=== PATIENT | male | born 2000 | race Caucasian/White ===

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

== ENCOUNTER 2020-07-28 09:59 | Emergency (ER) | payer MEDICAID ==
--- NOTE | 2020-07-28 10:50 | EDM.PDOC ---
ED HPI GENERAL MEDICAL PROBLEM - General Chief Complaint: Abdominal Pain Stated Complaint: L SIDED ABD PAIN Time Seen by Provider: 07/28/20 10:35 Source of Information: Reports: Patient, Old Records, RN History Limitations: Reports: No Limitations - History of Present Illness INITIAL COMMENTS - FREE TEXT/NARRATIVE: 19 yo male presents with a couple day hx of waxing and waning L sided abdominal pain. Sx's are a bit worse with deep breathing. No fever, constipation, diarrhea, nausea or hematuria. Onset: Gradual Onset Date: 07/26/20 Duration: Day(s):, Waxing/Waning Location: Reports: Abdomen Quality: Reports: Ache Severity: Moderate (varies over time) Improves with: Reports: None Worsens with: Reports: Other (unknown) Context: Reports: Other (See HPI) Associated Symptoms: Denies: Cough, Diaphoresis, Fever/Chills, Nausea/Vomiting, Rash Treatments [employer]: Reports: Other (see below) (none) Left Upper Abdomen Pain Score (Numeric/FACES): 4 - Related Data Allergies Allergy/AdvReac Type Severity Reaction Status Date / Time No Known Allergies Allergy Verified 07/28/20 10:23 Home Meds: Home Meds Minocycline [Minocin] 100 mg PO BID PRN 08/21/16 [History] Ascorbic Acid/Elderberry Fruit [Elderberry-Vit C 50-100 mg Chw] 1 tab PO DAILY 07/28/20 [History] Multivitamin [Multi-Vitamin Daily] 1 tab PO DAILY 07/28/20 [History] North Powder-3/DHA/Epa/Fish Oil [Fish Oil 1,000 mg Softgel] 1 tab PO DAILY 07/28/20 [History] Past Medical History HEENT History: Reports: Impaired Vision Musculoskeletal History: Reports: Fracture Other Musculoskeletal History: r ankle - Infectious Disease History Infectious Disease History: Reports: Chicken Pox - Past Surgical History HEENT Surgical History: Reports: Myringotomy w Tube(s), Tonsillectomy, Other (See Below) Other HEENT Surgeries/Procedures: jaw surgery Musculoskeletal Surgical History: Reports: Other (See Below) Other Musculoskeletal Surgeries/Procedures:: wrist right Social & Family History - Tobacco Use Tobacco Use Status *Q: Never Tobacco User Second Hand Smoke Exposure: No - Caffeine Use Caffeine Use: Reports: Energy Drinks, Soda - Recreational Drug Use Recreational Drug Use: No ED ROS GENERAL - Review of Systems Review Of Systems: See Below Constitutional: Reports: No Symptoms HEENT: Reports: No Symptoms Respiratory: Reports: No Symptoms Cardiovascular: Reports: No Symptoms GI/Abdominal: Reports: Abdominal Pain. Denies: Black Stool, Bloody Stool, Constipation, Diarrhea, Distension, Hematemesis, Hematochezia, Melena, Nausea, Vomiting : Reports: No Symptoms. Denies: Hematuria Musculoskeletal: Reports: No Symptoms Skin: Reports: No Symptoms ED EXAM, GI/ABD - Physical Exam Exam: See Below Exam Limited By: No Limitations General Appearance: Alert, WD/WN, No Apparent Distress, Obese Eyes: Bilateral: Normal Appearance Ears: Normal External Exam, Normal Canal, Hearing Grossly Normal Nose: Normal Inspection, No Blood Throat/Mouth: Normal Inspection, Normal Lips, Normal Oropharynx, Normal Voice, No Airway Compromise Head: Atraumatic, Normocephalic Neck: Normal Inspection Respiratory/Chest: No Respiratory Distress, Lungs Clear, Normal Breath Sounds, No Accessory Muscle Use Cardiovascular: Regular Rate, Rhythm, No Edema GI/Abdominal Exam: Normal Bowel Sounds, Soft, No Distention, Tender (L mid abdomen). No: Distended, Guarding, Rigid, Rebound Back Exam: Normal Inspection. No: CVA Tenderness (R), CVA Tenderness (L) Extremities: Normal Inspection, Normal Range of Motion, Non-Tender, No Pedal Edema Neurological: Alert, Oriented, CN II-XII Intact, Normal Cognition Psychiatric: Normal Affect, Normal Mood Skin Exam: Warm, Dry, Intact, Normal Color, No Rash Course - Vital Signs Last Recorded V/S: Last Vital Signs Temp 36.3 C 07/28/20 10:34 Pulse 58 L 07/28/20 16:18 Resp 16 07/28/20 10:34 BP 111/47 L 07/28/20 16:18 Pulse Ox 99 07/28/20 16:18 - Orders/Labs/Meds Orders: Active Orders 24 hr Category Date Time Status Abdomen 1V Flat [CR] Stat Exams 07/28/20 10:48 Taken Iopamidol [Isovue-300 (61%)] Med 07/28/20 14:30 Active 100 ml IV . DIRECTED Sodium Chloride 0.9% [Normal Saline] 100 ml Med 07/28/20 14:30 Active IV ASDIRECTED Sodium Chloride 0.9% [Saline Flush] Med 07/28/20 14:13 Active 10 ml FLUSH ASDIRECTED PRN Saline Lock Insert [OM.PC] Routine Oth 07/28/20 14:13 Ordered Medication Orders Sodium Chloride (Normal Saline) 100 mls @ 3 mls/sec IV ASDIRECTED MATIAS Last Admin: 07/28/20 15:48 Dose: 3 mls/sec Documented by: CATIA Iopamidol (Isovue-300 (61%)) 100 ml IV . DIRECTED MATIAS Last Admin: 07/28/20 15:48 Dose: 100 ml Documented by: CATIA Sodium Chloride (Saline Flush) 10 ml FLUSH ASDIRECTED PRN PRN Reason: Keep Vein Open Labs: Laboratory Tests 07/28/20 07/28/20 07/28/20 Range/Units 10:45 11:00 11:00 WBC 8.6 (4.5-11.0) K/uL RBC 5.73 (4.30-5.90) M/uL Hgb 15.3 H (12.0-15.0) g/dL Hct 45.5 (40.0-54.0) % MCV 79 L (80-98) fL MCH 27 (27-31) pg MCHC 34 (32-36) % Plt Count 225 (150-400) K/uL Sodium 141 (140-148) mmol/L Potassium 4.2 (3.6-5.2) mmol/L Chloride 104 (100-108) mmol/L Carbon Dioxide 27 (21-32) mmol/L Anion Gap 10.1 (5.0-14.0) mmol/L BUN 13 (7-18) mg/dL Creatinine 0.9 (0.8-1.3) mg/dL Est Cr Clr Drug Dosing 157.79 mL/min Estimated GFR (MDRD) > 60 (>60) Glucose 95 (74-106) mg/dL Calcium 9.8 (8.5-10.1) mg/dL C-Reactive Protein 1.47 H (0.0-0.3) mg/dL Urine Color (YELLOW) Urine Appearance (CLEAR) Urine pH (5.0-8.0) Ur Specific [place] (1.008-1.030) Urine Protein (NEGATIVE) mg/dL Urine Glucose (UA) (NEGATIVE) mg/dL Urine Ketones (NEGATIVE) mg/dL Urine Occult Blood (NEGATIVE) Urine Nitrite (NEGATIVE) Urine Bilirubin (NEGATIVE) Urine Urobilinogen (0.2-1.0) EU/dL Ur Leukocyte Esterase (NEGATIVE) Urine RBC (0-5) Urine WBC (0-5) Ur Epithelial Cells Amorphous Sediment Urine Bacteria Urine Mucus 07/28/20 Range/Units 13:42 WBC (4.5-11.0) K/uL RBC (4.30-5.90) M/uL Hgb (12.0-15.0) g/dL Hct (40.0-54.0) % MCV (80-98) fL MCH (27-31) pg MCHC (32-36) % Plt Count (150-400) K/uL Sodium (140-148) mmol/L Potassium (3.6-5.2) mmol/L Chloride (100-108) mmol/L Carbon Dioxide (21-32) mmol/L Anion Gap (5.0-14.0) mmol/L BUN (7-18) mg/dL Creatinine (0.8-1.3) mg/dL Est Cr Clr Drug Dosing mL/min Estimated GFR (MDRD) (>60) Glucose (74-106) mg/dL Calcium (8.5-10.1) mg/dL C-Reactive Protein (0.0-0.3) mg/dL Urine Color Yellow (YELLOW) Urine Appearance Clear (CLEAR) Urine pH 6.0 (5.0-8.0) Ur Specific [place] 1.025 (1.008-1.030) Urine Protein Negative (NEGATIVE) mg/dL Urine Glucose (UA) Negative (NEGATIVE) mg/dL Urine Ketones Negative (NEGATIVE) mg/dL Urine Occult Blood Negative (NEGATIVE) Urine Nitrite Negative (NEGATIVE) Urine Bilirubin Negative (NEGATIVE) Urine Urobilinogen 0.2 (0.2-1.0) EU/dL Ur Leukocyte Esterase Negative (NEGATIVE) Urine RBC 0-5 (0-5) Urine WBC 0-5 (0-5) Ur Epithelial Cells Rare Amorphous Sediment Rare Urine Bacteria Rare Urine Mucus Not seen Meds: Medications Generic Name Dose Route Start Last Admin Trade Name Freq PRN Reason Stop Dose Admin Sodium Chloride 100 mls @ 3 mls/sec 07/28/20 14:30 07/28/20 15:48 Normal Saline IV 3 mls/sec ASDIRECTED MATIAS Administration Iopamidol 100 ml 07/28/20 14:30 07/28/20 15:48 Isovue-300 (61%) IV 100 ml . DIRECTED MATIAS Administration Sodium Chloride 10 ml 07/28/20 14:13 Saline Flush FLUSH ASDIRECTED PRN Keep Vein Open Discontinued Medications Generic Name Dose Route Start Last Admin Trade Name Kym PRN Reason Stop Dose Admin Lidocaine HCl Confirm 07/28/20 15:19 Xylocaine-Mpf 1% Administered 07/28/20 15:20 Dose 4 mls @ as directed .ROUTE .STK-MED ONE Sodium Chloride 10 ml 07/28/20 14:26 07/28/20 15:48 Saline Flush FLUSH 07/28/20 14:27 10 ml ONETIME ONE Administration - Radiology Interpretation Free Text/Narrative:: Single view abdominal X-ray-neg CT abd/pelvis with IV contrast- IMPRESSION: 1. Focal inflammation along the left pericolic gutter centered within the fat consistent with epiploic appendagitis. 2. No dilated loops of large or small intestine. Normal appendix. 3. Fatty infiltration of the liver. 4. Trace free fluid within the pelvis. Please note that all CT scans at this facility use dose modulation, iterative reconstruction, and/or weight-based dosing when appropriate to reduce radiation dose to as low as reasonably achievable. Dictated by Mitchell Mix MD @ Jul 28 2020 4:13PM ( CT Results Date: 07/28/20 CT Results Time: 16:30 Departure - Departure Time of Disposition: 16:40 Disposition: Home, Self-Care 01 Condition: Good Clinical Impression: Epiploic appendagitis - Discharge Information *PRESCRIPTION DRUG MONITORING PROGRAM REVIEWED*: No *COPY OF PRESCRIPTION DRUG MONITORING REPORT IN PATIENT PO: No Instructions: Abdominal Pain, Adult, [id number] Referrals: Marcelino Arteaga MD [Primary Care Provider] - Forms: ED Department Discharge Additional Instructions: Take ibuprofen 600 mg every 6 hrs with food. Add [place] as needed for added relief. F/U with your provider as needed. Sepsis Event Note (ED) - Evaluation Sepsis Screening Result: No Definite Risk - Focused Exam Vital Signs: Vital Signs Temp Pulse Resp BP Pulse Ox 07/28/20 16:18 58 L 111/47 L 99 07/28/20 15:10 56 L 110/48 L 100 07/28/20 10:34 36.3 C 81 16 131/67 97 07/28/20 10:27 36.3 C 81 16 131/67 97 - My Orders Last 24 Hours: My Active Orders 07/28/20 10:48 Abdomen 1V Flat [CR] Stat 07/28/20 14:13 Sodium Chloride 0.9% [Saline Flush] 10 ml FLUSH ASDIRECTED PRN Saline Lock Insert [OM.PC] Routine 07/28/20 14:30 Iopamidol [Isovue-300 (61%)] 100 ml IV . DIRECTED Sodium Chloride 0.9% [Normal Saline] 100 ml IV ASDIRECTED - Assessment/Plan Last 24 Hours: My Active Orders 07/28/20 10:48 Abdomen 1V Flat [CR] Stat 07/28/20 14:13 Sodium Chloride 0.9% [Saline Flush] 10 ml FLUSH ASDIRECTED PRN Saline Lock Insert [OM.PC] Routine 07/28/20 14:30 Iopamidol [Isovue-300 (61%)] 100 ml IV . DIRECTED Sodium Chloride 0.9% [Normal Saline] 100 ml IV ASDIRECTED
[2020-07-28] MEDS ORDERED: Sodium Chloride 0.9% 10 ML Syringe FLUSH PRN (14:13)
[2020-07-28] MEDS ORDERED: Sodium Chloride 0.9% 10 ML Syringe FLUSH ONE (14:26)
[2020-07-28] MEDS ORDERED: Sodium Chloride 0.9% 100 ML IV SCH (14:30)
[2020-07-28] MEDS ORDERED: Iopamidol 612 MG/ML 100 ML Bottle IV SCH (14:30)
[2020-07-28] MEDS ORDERED: Lidocaine 1% 4 ML ONE (15:19)
[2020-07-28 16:18] VITALS: BP 111/47; PULSE 58
--- NOTE | 2020-07-28 16:27 | CRLCT ---
INDICATION: Left-sided abdominal pain with elevated CRP. TECHNIQUE: Axial images were obtained from the diaphragm to the pubic symphysis. Reformats were obtained in the coronal and sagittal plane. IV Contrast: 150 cc Isovue-300 Oral Contrast: None COMPARISON: None. FINDINGS: Lower chest: Unremarkable. Liver: Diffusely decreased density of the liver consistent with fatty infiltration. Gallbladder and bile ducts: Unremarkable. No stones or inflammation. No biliary dilatation. Spleen: Unremarkable. Normal in size without mass. Pancreas: Unremarkable. No mass or inflammation. Adrenal glands: Unremarkable. No nodules. Kidneys: Unremarkable. No masses, stones, or hydronephrosis. Vasculature: Unremarkable. GI tract: The stomach is unremarkable. No dilated loops of large or small intestine. Normal appendix. There is focal inflammation along the descending colon and the left pericolic gutter. This is adjacent to the colon but appear centered around the adjacent fat (series 2, image 79; series 3, image 51). Pelvis: Trace free fluid in the pelvis. Bones: Unremarkable for age. IMPRESSION: 1. Focal inflammation along the left pericolic gutter centered within the fat consistent with epiploic appendagitis. 2. No dilated loops of large or small intestine. Normal appendix. 3. Fatty infiltration of the liver. 4. Trace free fluid within the pelvis. Please note that all CT scans at this facility use dose modulation, iterative reconstruction, and/or weight-based dosing when appropriate to reduce radiation dose to as low as reasonably achievable. Dictated by Mitchell Mix MD @ Jul 28 2020 4:13PM Signed by Dr. Mitchell Mix @ Jul 28 2020 4:25PM
--- NOTE | 2020-07-30 09:12 | CR ---
Abdomen 1V Flat CLINICAL HISTORY: Left-sided abdominal pain FINDINGS: Small intestinal configuration is nonacute. No definite urinary calcification is seen. There is gas and feces are the right colon. IMPRESSION: Nonacute intestinal gas pattern
== END 2020-07-28 16:45 | disposition home or self-care (01) ==
LOC: JP.ED 09:59
DX: K63.89 Other specified diseases of intestine (principal)
CPT/HCPCS: 36415; 74018; 74177; 80048; 81001; 85027; 86140; 99284; Q9967; 99283

== ENCOUNTER 2020-10-16 20:16 | Emergency (ER) | payer MEDICAID ==
[2020-10-16 20:42] VITALS: BP 167/87; PULSE 95
--- NOTE | 2020-10-16 21:35 | EDM.PDOC ---
ED HPI GENERAL MEDICAL PROBLEM - General Chief Complaint: Skin Complaint Stated Complaint: POISION NOEMÍ Time Seen by Provider: 10/16/20 21:04 Source of Information: Reports: Patient History Limitations: Reports: No Limitations - History of Present Illness INITIAL COMMENTS - FREE TEXT/NARRATIVE: Lalo is a 20-year-old male presenting to the ED with concerns about spread of his skin lesions on his left lateral foot, ankle, leg and thigh. The patient was seen in the same day clinic at [facility] several days ago and diagnosed with contact dermatitis secondary to poison noemí. He was started on prednisone 40 mg daily for 5 days as well as triamcinolone cream and cephalexin 500 mg 3 times daily. Patient is concerned because he had a friend who had poison noemí and ended up developing gangrene and ultimately ended up losing his leg due to the gangrene. He was instructed by the provider that saw him in the [facility] clinic to come back in should there be any worsening of his lesions. The patient reports that the lesions on the foot have become much darker purple and are now starting to weep. The patient has confluent vesicles along the lateral foot, ankle, leg and thigh. There is no increased temperature to suggest an underlying cellulitis. He has not had any fever or chills. He has washed all the close and items that he was in contact with before the onset of symptoms. He believes that he may have contracted the poison noemí from the oils on his dog's skin. - Related Data Allergies Allergy/AdvReac Type Severity Reaction Status Date / Time No Known Allergies Allergy Verified 10/16/20 20:41 Home Meds: Home Meds Minocycline [Minocin] 100 mg PO BID PRN 08/21/16 [History] Ascorbic Acid/Elderberry Fruit [Elderberry-Vit C 50-100 mg Chw] 1 tab PO DAILY 07/28/20 [History] Multivitamin [Multi-Vitamin Daily] 1 tab PO DAILY 07/28/20 [History] [place]-3/DHA/Epa/Fish Oil [Fish Oil 1,000 mg Softgel] 1 tab PO DAILY 07/28/20 [History] Triamcinolone Acetonide [Triamcinolone Acetonide 0.1% Crm] 1 dose TOP ASDIRECTED 10/16/20 [History] cephALEXin [Cephalexin] 500 mg PO BID 10/16/20 [History] predniSONE [Prednisone] 20 mg PO DAILY 10/16/20 [History] Past Medical History HEENT History: Reports: Impaired Vision, Otitis Media Musculoskeletal History: Reports: Fracture Other Musculoskeletal History: r ankle Psychiatric History: Reports: ADD, ADHD, Depression Endocrine/Metabolic History: Reports: Obesity/BMI 30+ - Infectious Disease History Infectious Disease History: Reports: Chicken Pox - Past Surgical History HEENT Surgical History: Reports: Myringotomy w Tube(s), Tonsillectomy, Other (See Below) Other HEENT Surgeries/Procedures: jaw surgery Musculoskeletal Surgical History: Reports: Other (See Below) Other Musculoskeletal Surgeries/Procedures:: wrist right Social & Family History - Tobacco Use Tobacco Use Status *Q: Never Tobacco User - Caffeine Use Caffeine Use: Reports: Energy Drinks, Soda - Recreational Drug Use Recreational Drug Use: No ED ROS GENERAL - Review of Systems Review Of Systems: See Below Constitutional: Reports: No Symptoms Skin: Reports: Lesions (Pruritic, inflamed, confluent vesicular lesions on the lateral left foot, ankle, with scattered lesions on the lateral leg and thigh. Patient also reports that he has some lesions on the groin. There is mild amount of weeping from disruption of the vesicles. There is significant induration.) ED EXAM, SKIN/RASH Exam: See Below Exam Limited By: No Limitations General Appearance: Alert, No Apparent Distress Course - Vital Signs Last Recorded V/S: Last Vital Signs Temp 36.6 C 10/16/20 20:51 Pulse 95 10/16/20 20:51 Resp 20 10/16/20 20:51 BP 167/87 H 10/16/20 20:51 Pulse Ox 98 10/16/20 20:51 - Re-Assessments/Exams Free Text/Narrative Re-Assessment/Exam: 10/16/20 21:39 the lesions on the foot, ankle, leg, and thigh are consistent with a type I contact dermatitis or host versus graft reaction secondary to the oils of the poison noemí plant reacting to the UV radiation from the sunlight. This is causing considerable induration and vesicular formation. There is no evidence for acute infection. I did discuss this reaction with the patient and the continued use of the steroid ointment and oral steroid. I did explain to him that the cephalexin as prophylactic as there is no evidence for infection at this time but since there is open sores on his skin is to prevent infection. Certainly I expect this to start to worsen over the next day or 2 before it starts to improve as he is only been on prednisone for 1 day. His labs show a normal CBC and his CRP is mildly elevated at 0.44. I would recommend staying the course on the current therapy. Certainly if anything worsens he can feel fr ee to come back in for reevaluation. All questions concerning this were answered and the patient is suitable for discharge in satisfactory condition. Departure - Departure Time of Disposition: 21:41 Disposition: Home, Self-Care 01 Clinical Impression: Contact dermatitis due to poison noemí - Discharge Information Instructions: Poison Noemí Dermatitis Referrals: Marcelino Arteaga MD [Primary Care Provider] - Care Plan Goals: Continue with your medications as prescribed including the prednisone 40 mg daily, triamcinolone cream, and cephalexin. There is no sign for infection at this time and as I discussed with you this will likely worsen a little bit before it starts to improve which is likely to take the next 3 to 5 days to be noticeable. Treat any signs of increased temperature. Increased pain may also be evident if things worsen. Sepsis Event Note (ED) - Evaluation Sepsis Screening Result: No Definite Risk - Focused Exam Vital Signs: Vital Signs Temp Pulse Resp BP Pulse Ox 10/16/20 20:51 36.6 C 95 20 167/87 H 98 10/16/20 20:41 36.6 C 95 20 167/87 H 98 - Problem List & Annotations (1) Contact dermatitis due to poison noemí SNOMED Code(s): 592959601 Code(s): L23.7 - ALLERGIC CONTACT DERMATITIS DUE TO PLANTS, EXCEPT FOOD Status: Acute Priority: Low Current Visit: Yes - Problem List Review Problem List Initiated/Reviewed/Updated: Yes
== END 2020-10-16 21:54 | disposition home or self-care (01) ==
LOC: JP.ED 20:16
DX: L23.7 Allergic contact dermatitis due to plants, except food (principal); E66.9 Obesity, unspecified; Z68.39 Body mass index [BMI] 39.0-39.9, adult
CPT/HCPCS: 36415; 85025; 86140; 99283

== ENCOUNTER 2021-08-07 20:03 | Emergency (ER) | payer OTHER, MEDICAID ==
[2021-08-07 20:22] VITALS: BP 124/77; PULSE 92
[2021-08-07] MEDS ORDERED: Methocarbamol 500 MG Tab PO ONE (20:48)
== END 2021-08-07 21:09 | disposition home or self-care (01) ==
LOC: JP.ED 20:03
DX: S39.012A Strain of muscle, fascia and tendon of lower back, initial encounter (principal); S70.02XA Contusion of left hip, initial encounter; M62.830 Muscle spasm of back; E66.9 Obesity, unspecified; Z68.39 Body mass index [BMI] 39.0-39.9, adult; V49.40XA Driver injured in collision with unspecified motor vehicles in traffic accident, initial encounter; Y92.410 Unspecified street and highway as the place of occurrence of the external cause
CPT/HCPCS: 99283; A9270-GY